=== PATIENT | female | born 1940 | race Two or more races ===

== ENCOUNTER 2021-05-13 20:05 | Emergency (ER) | payer MEDICARE ==
[~2021-05-13] VITALS: Ht 157.5 cm; Wt 65.8 kg
--- NOTE | 2021-05-13 20:14 | NUR ---
[id number] FROM HOME FAMILY "FOUND PT ALTERED CHECKED BS-41 ON SEEN" GIVEN 5G D10, 24G ORAL GLUCOSE PER EMS BS-61. PATIENT ALERT AND ORIENTED X2. BROUGHT IN BY STRETCHER, PLACED IN BED 02 ON MONITOR. BS AT TRIAGE 79
--- NOTE | 2021-05-13 20:15 | NUR ---
RFA #20G S/L; PATENT AND INTACT. POC ACCU CHECK 79. PT AWAKE COOL, CLAMMY, SHAKINESS NOTED. AWARE.
--- NOTE | 2021-05-13 20:16 | NUR ---
BLOOD COLLECTED AND SENT TO LAB
[2021-05-13 20:32] LABS: BASOPHILS # (AUTO) 0.1 K/uL (0.0-0.2); BASOPHILS % (AUTO) 0.6 % (0.0-2.0); EOSINOPHILS % (AUTO) 1.3 % (0.0-6.0); HEMATOCRIT 36 % (33-45); LYMPHOCYTES # (AUTO) 4.6 K/uL (0.8-4.8); LYMPHOCYTES % (AUTO) 33.5 % (20.0-44.0); MEAN CORPUSCULAR HGB CONC 34 g/dl (31.0-36.0); MEAN CORPUSCULAR VOLUME 87 fL (82-100); MONOCYTES # (AUTO) 0.7 K/uL (0.1-1.30); MONOCYTES % (AUTO) 4.9 % (2.0-12.0); NEUTROPHILS # (AUTO) 8.3 K/uL (1.8-8.9); NEUTROPHILS % (AUTO) 59.7 % (43.0-81.0); PLATELET COUNT (AUTO) 324 K/uL (150-450); RED BLOOD CELL COUNT(AUTO) 4.12 MIL/uL (4.0-5.2); WHITE BLOOD COUNT (AUTO) 13.8 K/uL (4.3-11.0)
[2021-05-13 20:35] LABS: CALCIUM, SERUM 9.7 mg/dL (8.5-10.1); CARBON DIOXIDE 30 mmol/L (21-32); CHLORIDE 97 mmol/L (98-107); CREATININE 1.5 mg/dL (0.6-1.3); GLUCOSE 81 mg/dL (74-106); POTASSIUM 4.3 mmol/L (3.5-5.1); SODIUM SERUM 133 mmol/L (136-145); UREA NITROGEN, BLOOD 28 mg/dL (7-18)
--- NOTE | 2021-05-13 21:49 | NUR ---
POC BS 158
--- NOTE | 2021-05-13 22:06 | NUR ---
IV removed. Catheter intact and site benign. Pressure and 4x4 applied to site. No bleeding noted.
[2021-05-13 22:07] VITALS: BP 164/76
--- NOTE | 2021-05-13 22:07 | NUR ---
Patient discharged to home in stable condition. Written and verbal after care instructions given. Patient verbalizes understanding of instruction.
== END 2021-05-13 22:08 | disposition home or self-care (01) ==
LOC: ER 20:09
DX: E16.2 Hypoglycemia, unspecified (principal); I10 Essential (primary) hypertension; E11.9 Type 2 diabetes mellitus without complications; Z88.6 Allergy status to analgesic agent
CPT/HCPCS: 36415; 80048-TC; 82962-TC; 84484-TC; 85025-TC